=== PATIENT | female | born 1945 | race Hispanic/Latino ===

== ENCOUNTER → 2017-10-20 | Outpatient (CLI) | payer MEDICARE | END | disposition home or self-care (01) | LOC: SHCH 13:05 | PROVIDERS: ATTEND Internal Medicine Cardiovascular Disease | DX: I20.9 Angina pectoris, unspecified (principal); R06.02 Shortness of breath | CPT/HCPCS: 93306 ==

== ENCOUNTER → 2017-10-27 | Outpatient (CLI) | payer MEDICARE ==
[~2017-10-27] MED LIST: REGADENOSON 0.4 MG/5 ML PF SYG IVP ONE
== END | disposition home or self-care (01) ==
LOC: SHCH 08:01
PROVIDERS: ATTEND Internal Medicine Cardiovascular Disease
DX: I20.9 Angina pectoris, unspecified (principal)
CPT/HCPCS: 78452; 93017; 96374; A9500 ×2; J2785

== ENCOUNTER → 2024-11-01 | Outpatient (CLI) | payer MEDICARE ==
--- NOTE | 2024-11-04 07:55 | HMCSR ---
APPROVED REPORT EXAM: Two-dimensional and M-mode echocardiogram with Doppler and color Doppler. INDICATION ICD: I25.10 Atherosclerotic heart disease of [place] coronary artery without angina pectoris 2D Dimensions RVDd3.2 cmLVEF(%)51.4 (>50%)LVED Vol(simp.)84.0 mL IVSd0.9 (0.7-1.1cm)FS(%)26 %LVES Vol(simp.)38.0 mL LVDd4.6 (3.8-5.6cm)Ao Root(2D)3.0 (2.0-3.7cm)LVEF(%, simp.)55 % PWd0.9 (0.7-1.1cm)LVOT diam2.1 (1.8-2.4cm)LA ESV INDEX (BP)30.17 mL/m2 LVDs3.4 (2.5-4.0cm)IVC diam1.5 cm Deformation Strain Apical 4-17.0 % Apical 2-13.9 % Apical 3-13.9 % Global Strain-14.9 % Aortic Valve AoV Vmax1.3 m/Davion Peak GR7.1 mmHgLVOT Vmax0.9 m/s AoV VTI0.3 mAo Mean GR3.8 mmHgLVOT VTI0.22 m PAOLO (VMAX)2.5 cm2AVA (VTI) 2.5 cm2 Mitral Valve MV E Vmax69.1 cm/sDECEL Mdip365 ms MV A Jhzw643.2 cm/sP 1/2 T67 ms E/A ratio0.7MVA (PHT)3.3 cm2 MR Max PG74 mmHg TDI E/E' [id number]/E' [id number] Pulmonary Valve PV Vmax0.8 m/sPV VTI0.21 mPV Mean GR2 mmHg PV Peak GR2.7 mmHg Tricuspid Valve TR Vmax2.4 m/sRAP (EST) 3 [id number] mmHg TR Peak GR23.0 mmHg Left Ventricle The left ventricle structure and function is normal. There is normal LV segmental wall motion. There is normal left ventricular wall thickness. LVEF is 50-55%. Grade 1 diastolic dysfunction Right Ventricle The right ventricle is normal size. The right ventricular systolic function is normal. Atria The left atrium size is normal. The right atrium size is normal. Aortic Valve Aortic valve is trileaflet. Aortic valve leaflets are sclerotic but open well. Trace aortic regurgita tion. There is no aortic valvular stenosis. Mitral Valve Mitral valve leaflets are mildly sclerotic but open well. Mitral annular calcification is mild. Lupe l regurgitation is trace to mild. There is no mitral valve stenosis. Tricuspid Valve The tricuspid valve leaflets appear normal. There is trace tricuspid regurgitation. Pulmonic Valve Pulmonic valve is not well visualized. Great Vessels The aortic root is normal in size. The IVC is normal in size and collapses >50% with inspiration. Pericardium No pericardial effusion. Conclusion LVEF is 50-55%. Grade 1 diastolic dysfunction There is normal LV segmental wall motion. Aortic valve is trileaflet. Aortic valve leaflets are sclerotic but open well. Mitral valve leaflets are mildly sclerotic but open well. Mitral annular calcification is mild.
== END | disposition home or self-care (01) ==
LOC: SHCH 15:08
PROVIDERS: ATTEND Internal Medicine Cardiovascular Disease
DX: I08.0 Rheumatic disorders of both mitral and aortic valves (principal); I25.10 Atherosclerotic heart disease of native coronary artery without angina pectoris
CPT/HCPCS: 93306; 93356